=== PATIENT | male | born 1965 | race African-American/Black ===

== ENCOUNTER 2016-06-05 11:14 | Emergency (ER) | payer OTHER ==
[~2016-06-05] VITALS: Ht 177.8 cm; Wt 63.5 kg
[2016-06-05] MEDS ORDERED: LOVASTATIN 20 M20 MG PO (11:22)
[2016-06-05] MEDS ORDERED: GABAPENTIN 100100 MG PO (11:22)
[2016-06-05] MEDS ORDERED: [UNRECOGNIZED DRUG - REMARK] (11:23)
[2016-06-05] MEDS ORDERED: PERCOCET 10-321 EACH PO (11:23)
[2016-06-05] MEDS ORDERED: [UNRECOGNIZED DRUG - REMARK] (11:23)
[2016-06-05] MEDS ORDERED: LISINOPRIL10 MG PO (11:23)
[2016-06-05] MEDS ORDERED: [UNRECOGNIZED DRUG - REMARK] (11:24)
[2016-06-05] MEDS ORDERED: [UNRECOGNIZED DRUG - REMARK] (11:24)
[2016-06-05] MEDS ORDERED: AMBIEN 5 MG TABL5 M1 PO (11:24)
[2016-06-05] MEDS ORDERED: PERCOCET 5-3251 EACH PO (12:07)
[2016-06-05 12:12] VITALS: BP 139/97
== END 2016-06-05 12:12 | disposition home or self-care (01) ==
LOC: ER 11:14
DX: G89.29 Other chronic pain (principal); Z76.0 Encounter for issue of repeat prescription; F10.99 Alcohol use, unspecified with unspecified alcohol-induced disorder; F20.0 Paranoid schizophrenia; F17.210 Nicotine dependence, cigarettes, uncomplicated; Z88.5 Allergy status to narcotic agent

== ENCOUNTER 2016-06-09 12:32 | Emergency (ER) | payer OTHER ==
[~2016-06-09] VITALS: Ht 177.8 cm; Wt 63.5 kg
[~2016-06-09 12:32] MED LIST: AMBIEN 5 MG TABL5 M1 PO; GABAPENTIN 100100 MG PO; LISINOPRIL10 MG PO; LOVASTATIN 20 M20 MG PO; PERCOCET 10-321 EACH PO; PERCOCET 5-3251 EACH PO; [UNRECOGNIZED DRUG - REMARK]; [UNRECOGNIZED DRUG - REMARK]; [UNRECOGNIZED DRUG - REMARK]; [UNRECOGNIZED DRUG - REMARK]
[2016-06-09 12:35] VITALS: BP 146/97
== END 2016-06-09 13:33 | disposition left against medical advice (07) ==
LOC: ER 12:32
DX: G89.29 Other chronic pain (principal); F20.0 Paranoid schizophrenia; F17.210 Nicotine dependence, cigarettes, uncomplicated; Z76.0 Encounter for issue of repeat prescription; Z88.5 Allergy status to narcotic agent